=== PATIENT | male | born 1980 | race Two or more races ===

== ENCOUNTER 2022-01-10 12:20 | Emergency (ER) | payer MEDICAID ==
[~2022-01-10] VITALS: Ht 177.8 cm; Wt 102.0 kg
[2022-01-10] MEDS ORDERED: cloNIDine HCL 0.1 MG TAB PO ONE (12:45)
[2022-01-10 13:21] LABS: Basophils # (auto) 0 10 ^3/uL (0-0.2); Eosinophils # (auto) 0.1 10 ^3/uL (0-0.8); Lymphocytes # (auto) 1.3 10 ^3/uL (0.4-5.4); White Blood Cell 6.2 10^3/uL (4.4-10.8)
[2022-01-10 13:23] LABS: Basophils % (auto) 0.5 % (0.0-2.0); Eosinophils % (auto) 2.4 % (0.0-7.0); Hematocrit 55.6 % (41.0-53.0); Hemoglobin 18.9 g/dL (13.5-17.5); Mean Corpuscular Hemoglobin 30.3 pg (28.0-32.0); Mean Corpuscular Volume 89.1 fL (80.0-100.0); Monocytes # (auto) 0.9 10 ^3/uL (0-1.3); Monocytes % (auto) 14.7 % (0.0-12.0); Neutrophils # (auto) 3.8 10 ^3/uL (1.6-8.6); Neutrophils % (auto) 61.4 % (37.0-80.0); Nucleated Red Blood Cells % 0.2 %; Red Blood Cells 6.24 10^6/uL (4.5-5.90); Red Cell Distribution Width 13.9 % (11.8-14.3)
[2022-01-10 13:33] LABS: Albumin 4.1 g/dL (3.4-5.0); BUN/Creatinine Ratio 14.7; Calcium 9.3 mg/dL (8.5-10.1); Potassium 4.7 mmol/L (3.5-5.1)
[2022-01-10 13:35] LABS: Bilirubin, Total 0.6 mg/dL (0.2-1.0); Total Protein 7.7 g/dL (6.4-8.2)
[2022-01-10 13:45] LABS: Urine Bacteria NONE SEEN /hpf (None Seen); Urine Blood Negative /uL (Negative); Urine Specific Gravity 1.022 (1.001-1.035); Urine WBC 1 /hpf (0 - 3)
[2022-01-10 16:58] VITALS: BP 147/97
== END 2022-01-10 17:03 | disposition home or self-care (01) ==
LOC: ER 12:23
DX: I16.0 Hypertensive urgency (principal); E11.9 Type 2 diabetes mellitus without complications; E78.5 Hyperlipidemia, unspecified; F12.90 Cannabis use, unspecified, uncomplicated; Z87.891 Personal history of nicotine dependence
CPT/HCPCS: 36415; 70450; 80053; 81001; 85025; 93005

== ENCOUNTER 2023-01-09 14:06 | Inpatient (IN) | payer SELFPAY ==
[~2023-01-09] VITALS: Ht 177.8 cm; Wt 103.6 kg
[2023-01-09 14:36] LABS: Basophils # (auto) 0 10 ^3/uL (0-0.2); Basophils % (auto) 0.3 % (0.0-2.0); Eosinophils # (auto) 0.1 10 ^3/uL (0-0.8); Eosinophils % (auto) 1.2 % (0.0-7.0); Lymphocytes # (auto) 1.4 10 ^3/uL (0.4-5.4); Red Blood Cells 5.93 10^6/uL (4.5-5.90)
[2023-01-09 14:38] LABS: Hematocrit 55.4 % (41.0-53.0); Hemoglobin 18.8 g/dL (13.5-17.5); Lymphocytes % (auto) 13.2 % (10.0-50.0); Mean Corpuscular Hemoglobin 31.8 pg (28.0-32.0); Mean Corpuscular Volume 93.4 fL (80.0-100.0); Monocytes # (auto) 1.3 10 ^3/uL (0-1.3); Monocytes % (auto) 11.7 % (0.0-12.0); Neutrophils # (auto) 8.1 10 ^3/uL (1.6-8.6); Neutrophils % (auto) 73.6 % (37.0-80.0); Nucleated Red Blood Cells % 0.2 %; Red Cell Distribution Width 14.7 % (11.8-14.3); White Blood Cell 10.9 10^3/uL (4.4-10.8)
[2023-01-09 14:51] LABS: Alanine Aminotransferase 44 U/L (7-40); Albumin 4.6 g/dL (3.2-4.8); Alkaline Phosphatase 98 U/L (46-116); Anion Gap 3 (5-15); Aspartate Aminotransferase 35 U/L (13-40); Bilirubin, Total 0.7 mg/dL (0.2-1.0); Blood Urea Nitrogen 16 mg/dL (9-23); Calcium 9.2 mg/dL (8.7-10.4); Carbon Dioxide 32 mmol/L (20-30); Chloride 101 mmol/L (98-107); Glucose 156 mg/dL (74-106); Magnesium 2.1 mg/dL (1.6-2.6); Potassium 4.4 mmol/L (3.5-5.1); Sodium 136 mmol/L (136-145)
[2023-01-09 14:52] LABS: INR 1.04 (0.9-1.15); Prothrombin Time 10.9 sec (9.3-11.8)
[2023-01-09 15:27] LABS: BUN/Creatinine Ratio 21.6 (10.0-20.0)
[2023-01-09 15:32] LABS: Total Protein 4.5 g/dL (5.7-8.2)
[2023-01-09] MEDS ORDERED: ENOXAPARIN SOD 100 MG/1 ML SYRINGE SC ONE (15:45)
[2023-01-09] MEDS ORDERED: ASPirin 325 MG TAB PO ONE (15:45)
[2023-01-09] MEDS ORDERED: FUROSEMIDE 40 MG/4 ML VIAL IV ONE (15:45)
[2023-01-09 17:08] LABS: Urine Bacteria NONE SEEN /hpf (None Seen); Urine Blood Negative /uL (Negative); Urine Clarity Clear (Clear); Urine Color Yellow (Yellow); Urine Protein, UAD 1+ (Negative); Urine Specific Gravity 1.023 (1.001-1.035); Urine Urobilinogen Normal (Negative); Urine WBC <1 /hpf (0 - 3)
[2023-01-09 17:19] LABS: Amphetamine Screen, Urine Neg (NEGATIVE); Barbiturate Scree,Urine Neg (NEGATIVE); Benzodiazephine Screen, Urine Neg (NEGATIVE); Cocaine Screen, Urine Pos (NEGATIVE); Opiate Scree,Urine Neg (NEGATIVE); Phencyclidine Screen, Urine Neg (NEGATIVE)
[2023-01-09 17:20] LABS: Cannabinoid Screen, Urine Neg (NEGATIVE)
[2023-01-09] MEDS ORDERED: LOSA100T58 PO ×2 (17:39→23:09)
[2023-01-09] MEDS ORDERED: AMLO1TAB23 PO (17:39)
[2023-01-09] MEDS ORDERED: METF-370 PO (17:39)
[2023-01-09] MEDS ORDERED: ATOR20TA50 PO (17:39)
[2023-01-09] MEDS ORDERED: ACETAMINOPHEN 325 MG TAB PO PRN (17:45)
[2023-01-09] MEDS ORDERED: MORPHINE SULFATE INJ 2 MG/ml SYRG IV PRN (17:45)
[2023-01-09] MEDS ORDERED: NITROGLYCERIN 0.4 MG SL TAB SL PRN (17:45)
[2023-01-09] MEDS: ENOXAPARIN SOD 100 MG/1 ML SYRINGE SC SCH (18:00)
[2023-01-09] MEDS ORDERED: DEXTROSE (50%) 50ML SYRG IV PRN (18:00)
[2023-01-09 19:14] LABS: LDL Cholesterol 114 mg/dL (< 100); Triglycerides 296 mg/dL (< 150)
[2023-01-09 19:16] LABS: Cholesterol 175 mg/dL (< 200); HDL Cholesterol 35 mg/dL (40-59)
[2023-01-09] MEDS: ACCU-CHEK COMFORT CURVE STRIP VI SCH (23:08)
[2023-01-09] MEDS ORDERED: AMLO1TAB22 PO (23:11)
[2023-01-09] MEDS: InsuLIN REG 1unit/0.01ml Soln (100units/ml) SC SCH (23:15)
[2023-01-09] MEDS: hydrALAZINE HCL 20 MG/ML VL IV PRN (23:45)
[2023-01-10 02:18] VITALS: PULSE 96; RESP 16; O2SAT 94
[2023-01-10] MEDS: ENOXAPARIN SOD 100 MG/1 ML SYRINGE SC SCH (06:36)
[2023-01-10] MEDS: ACCU-CHEK COMFORT CURVE STRIP VI SCH ×4 (06:42→23:42)
[2023-01-10] MEDS: InsuLIN REG 1unit/0.01ml Soln (100units/ml) SC SCH ×4 (06:48→23:51)
[2023-01-10 06:53] LABS: Basophils # (auto) 0 10 ^3/uL (0-0.2); Basophils % (auto) 0.3 % (0.0-2.0); Eosinophils # (auto) 0.1 10 ^3/uL (0-0.8); Hematocrit 52.4 % (41.0-53.0); Nucleated Red Blood Cells % 0.4 %
[2023-01-10 06:55] LABS: Alanine Aminotransferase 42 U/L (7-40); Albumin 4.5 g/dL (3.2-4.8); Alkaline Phosphatase 84 U/L (46-116); Anion Gap 9 (5-15); Aspartate Aminotransferase 30 U/L (13-40); BUN/Creatinine Ratio 11.1 (10.0-20.0); Bilirubin, Total 1.2 mg/dL (0.2-1.0); Blood Urea Nitrogen 13 mg/dL (9-23); Carbon Dioxide 26 mmol/L (20-30); Chloride 103 mmol/L (98-107); Glucose 171 mg/dL (74-106); Hemoglobin 17.9 g/dL (13.5-17.5); Lymphocytes # (auto) 1.4 10 ^3/uL (0.4-5.4); Lymphocytes % (auto) 17.9 % (10.0-50.0); Mean Corpuscular Hemoglobin 31.4 pg (28.0-32.0); Mean Corpuscular Hgb Conc. 34.1 g/dL (32.0-36.0); Monocytes # (auto) 1.3 10 ^3/uL (0-1.3); Monocytes % (auto) 15.6 % (0.0-12.0); Neutrophils # (auto) 5.2 10 ^3/uL (1.6-8.6); Neutrophils % (auto) 65.2 % (37.0-80.0); Potassium 3.4 mmol/L (3.5-5.1); Red Cell Distribution Width 15.2 % (11.8-14.3); Sodium 138 mmol/L (136-145)
[2023-01-10 07:35] VITALS: PULSE 90; RESP 18; O2SAT 95
[2023-01-10] MEDS: hydrALAZINE HCL 20 MG/ML VL IV PRN (08:05)
[2023-01-10] MEDS ORDERED: POTASSIUM EFFERVESENT TAB 25 MEQ PO ONE (09:45)
[2023-01-10] MEDS ORDERED: amLODIPine BESYLATE 5 MG TAB PO SCH (10:00)
[2023-01-10] MEDS: ASPirin 81 mg TAB PO SCH (10:52)
[2023-01-10] MEDS: LOSARTAN POTASSIUM 50 MG TAB PO SCH (10:55)
[2023-01-10 19:30] VITALS: PULSE 93; RESP 18; O2SAT 96
[2023-01-10] MEDS ORDERED: ATORVASTATIN 20 MG TAB PO SCH (22:00)
[2023-01-10 23:00] VITALS: BP 144/101; PULSE 95; RESP 18; TEMP 97.9; O2SAT 93
[2023-01-11 05:00] VITALS: BP 151/103; PULSE 82; RESP 16; TEMP 98.2; O2SAT 92
[2023-01-11] MEDS: hydrALAZINE HCL 20 MG/ML VL IV PRN (05:50)
[2023-01-11] MEDS: ACCU-CHEK COMFORT CURVE STRIP VI SCH (06:00)
[2023-01-11] MEDS: InsuLIN REG 1unit/0.01ml Soln (100units/ml) SC SCH (06:05)
[2023-01-11 07:30] VITALS: PULSE 90
[2023-01-11] MEDS: ASPirin 81 mg TAB PO SCH (08:13)
[2023-01-11] MEDS: LOSARTAN POTASSIUM 50 MG TAB PO SCH (08:14)
[2023-01-11 09:21] VITALS: BP 140/88; PULSE 86; RESP 20; TEMP 97.8; O2SAT 96
[2023-01-11] MEDS ORDERED: METO-6 PO (09:48)
[2023-01-11] MEDS ORDERED: ATO40T PO (09:48)
[2023-01-11] MEDS ORDERED: METOPROLOL SUCCINATE XL 50 MG TAB PO SCH (10:00)
[2023-01-11 10:34] VITALS: BP 140/88; PULSE 86; RESP 20; TEMP 97.8; O2SAT 96
== END 2023-01-11 11:00 | disposition home or self-care (01) | DRG 282 ==
LOC: ER 14:06 → TELE 17:38 → TELE-WESTW 01-10 23:09
PROVIDERS: ADMIT Nurse Practitioner Family; ATTEND Family Medicine
DX: I21.4 Non-ST elevation (NSTEMI) myocardial infarction (principal); I11.0 Hypertensive heart disease with heart failure; E78.5 Hyperlipidemia, unspecified; E66.01 Morbid (severe) obesity due to excess calories; E11.9 Type 2 diabetes mellitus without complications; Z68.32 Body mass index [BMI] 32.0-32.9, adult; E78.00 Pure hypercholesterolemia, unspecified; F10.10 Alcohol abuse, uncomplicated; I50.9 Heart failure, unspecified; F14.10 Cocaine abuse, uncomplicated; I16.0 Hypertensive urgency; Z79.82 Long term (current) use of aspirin; Z79.84 Long term (current) use of oral hypoglycemic drugs; Z87.891 Personal history of nicotine dependence; Z71.41 Alcohol abuse counseling and surveillance of alcoholic
CPT/HCPCS: 36415; 71045; 80053; 80061; 80307; 81001; 82962; 83036; 83735; 83880; 84443; 84484; 85025; 85379; 85610; 85730; 93005; 93306; 96372; 96374; 99291; G0378; J1815